=== PATIENT | female | born 1955 | race Hispanic/Latino ===

== ENCOUNTER 2021-08-10 17:05 | Emergency (ER) | payer MEDICARE | END 2021-08-10 18:21 | disposition home or self-care (01) | LOC: CSHERS 17:05 | DX: B02.9 Zoster without complications (principal); B86 Scabies; I48.91 Unspecified atrial fibrillation; E78.5 Hyperlipidemia, unspecified; E78.00 Pure hypercholesterolemia, unspecified; Z79.01 Long term (current) use of anticoagulants; Z79.82 Long term (current) use of aspirin; Z79.84 Long term (current) use of oral hypoglycemic drugs | CPT/HCPCS: 99282 ==

== ENCOUNTER 2021-08-18 16:31 | Observation (INO) | payer MEDICARE ==
[2021-08-18 17:37] LABS: #Basophils 0.1 10x3/uL (0.0-0.2); #Eosinphils 0.1 10x3/uL (0.0-0.5); #Monocytes 0.7 10x3/uL (0.0-1.1); #Neutrophils 5.1 10x3/uL (1.5-8.4); %Basophils 0.6 % (0.0-2.0); %Eosinophils 1.5 % (0.0-6.0); %Lymphocytes 28.9 % (18.0-47.0); %Monocytes 8.5 % (0.0-10.0); %Neutrophils 59.9 % (40.0-75.0); Hemoglobin 13.6 g/dL (12.0-15.5); Mean Corpuscular HGB CONC 33.7 g/dL (32.0-36.0); Mean Corpuscular Hemoglobin 31.1 pg (27.0-33.0); Mean Corpuscular Volume 92.2 fl (81.6-98.3); Mean Platelet Volume 10.5 fl (7.4-10.4); Platelet Count 223 10x3/uL (150-450); RBC Distribution Width 12.9 % (11.5-14.5); Red Blood Cell (RBC) Count 4.37 10x6/uL (3.90-5.03); White Blood Cell (WBC) Count 8.5 10x3/uL (3.5-10.5)
[2021-08-18 17:47] LABS: ALT (SGPT) 53 U/L (8-55); AST (SGOT) 66 U/L (5-34); Albumin 3.8 g/dL (3.4-4.8); Alkaline Phosphatase 55 U/L (40-110); Anion Gap 14 mmol/L (10-20); BUN (Urea Nitrogen) 19 mg/dL (9.8-20.1); Bilirubin, Total 1.1 mg/dL (0.2-1.2); Calc. Creatinine Clearance 0 mL/min (70-130); Calcium 9.9 mg/dL (7.8-10.44); Carbon Dioxide 28 mmol/L (23-31); Chloride 103 mmol/L (98-107); Globulin 2.5 g/dL (2.4-3.5); Glucose 268 mg/dL (80-115); Potassium 4.8 mmol/L (3.5-5.1); Protein, Total 6.3 g/dL (5.8-8.1); Sodium 140 mmol/L (136-145)
[2021-08-18] MEDS ORDERED: Acetaminophen 650 MG Suppository PR PRN (19:00)
[2021-08-18] MEDS ORDERED: Acetaminophen 325 MG TAB PO PRN (19:00)
[2021-08-18] MEDS ORDERED: Dextrose 5% in Water 1,000 ML IV PRN (19:07)
[2021-08-18] MEDS ORDERED: Insulin Regular 300 UNITS/3 ML VIAL SC PRN (19:07)
[2021-08-18] MEDS ORDERED: Dextrose 50% Abboject 50 ML SYRINGE SLOW IVP PRN (19:07)
[2021-08-18 20:14] LABS: HIV (1/2) Antibody/Antigen Non-Reactive (NonReactive); HIV 1/2 INDEX 0.08 S/CO (<1.00); Syphilis Antibody Nonreactive (Nonreactive); Syphilis Antibody Index 0.09 S/CO (<1.00 Non-Reactive)
[2021-08-18] MEDS ORDERED: Dronedarone HCl 400 MG TAB PO SCH (21:00)
[2021-08-18] MEDS ORDERED: Apixaban 5 MG TAB PO SCH ×2 (21:00→22:15)
[2021-08-18] MEDS ORDERED: Permethrin 5% Cream 60 GM TUBE TOP SCH (22:00)
[2021-08-18] MEDS: Atorvastatin Calcium 20 MG TAB PO SCH (22:35)
[2021-08-18] MEDS: Metoprolol Tartrate 50 MG TAB PO SCH (22:35)
[2021-08-18] MEDS: Sodium Chloride 0.9% 1,000 ML IV SCH (22:35)
[2021-08-19 03:26] VITALS: BMI 36.1
[2021-08-19 03:36] LABS: #Basophils 0.1 10x3/uL (0.0-0.2); #Eosinphils 0.2 10x3/uL (0.0-0.5); #Monocytes 0.7 10x3/uL (0.0-1.1); #Neutrophils 5.1 10x3/uL (1.5-8.4); %Basophils 0.6 % (0.0-2.0); %Eosinophils 2.7 % (0.0-6.0); %Lymphocytes 30.2 % (18.0-47.0); %Neutrophils 57.8 % (40.0-75.0); Hemoglobin 13.8 g/dL (12.0-15.5); Mean Corpuscular HGB CONC 33.8 g/dL (32.0-36.0); Mean Corpuscular Hemoglobin 31.1 pg (27.0-33.0); Mean Corpuscular Volume 91.9 fl (81.6-98.3); Mean Platelet Volume 10.4 fl (7.4-10.4); Platelet Count 211 10x3/uL (150-450); RBC Distribution Width 12.9 % (11.5-14.5); Red Blood Cell (RBC) Count 4.44 10x6/uL (3.90-5.03); White Blood Cell (WBC) Count 8.8 10x3/uL (3.5-10.5)
[2021-08-19 03:55] LABS: Anion Gap 13 mmol/L (10-20); BUN (Urea Nitrogen) 19 mg/dL (9.8-20.1); Calc. Creatinine Clearance 104 mL/min (70-130); Calcium 9.4 mg/dL (7.8-10.44); Carbon Dioxide 26 mmol/L (23-31); Chloride 107 mmol/L (98-107); Glucose 179 mg/dL (80-115); Sodium 142 mmol/L (136-145)
[2021-08-19] MEDS: metFORMIN 500 MG TAB PO SCH ×2 (06:33→17:27)
[2021-08-19] MEDS: Empagliflozin 10 MG TAB PO SCH (08:22)
[2021-08-19] MEDS: Aspirin Chewable 81 MG TAB PO SCH (08:22)
[2021-08-19] MEDS: valACYclovir 500 MG TAB PO SCH ×2 (08:23→20:50)
[2021-08-19] MEDS: Metoprolol Tartrate 50 MG TAB PO SCH ×2 (08:23→20:50)
[2021-08-19] MEDS: Apixaban 5 MG TAB PO SCH ×2 (08:23→20:51)
[2021-08-19] MEDS: predniSONE 50 MG TAB PO SCH (08:29)
[2021-08-19] MEDS ORDERED: valACYclovir 500 MG TAB PO SCH (09:00)
[2021-08-19] MEDS ORDERED: Permethrin 5% Cream 60 GM TUBE TOP SCH (11:00)
[2021-08-19] MEDS: Sodium Chloride 0.9% 1,000 ML IV SCH (12:59)
[2021-08-19] MEDS: Insulin Regular 300 UNITS/3 ML VIAL SC PRN (17:27)
[2021-08-19] MEDS: Atorvastatin Calcium 20 MG TAB PO SCH (20:51)
[2021-08-20] MEDS: Sodium Chloride 0.9% 1,000 ML IV SCH ×2 (03:30→17:02)
[2021-08-20 04:12] LABS: #Eosinphils 0.1 10x3/uL (0.0-0.5); #Monocytes 0.8 10x3/uL (0.0-1.1); #Neutrophils 7.6 10x3/uL (1.5-8.4); %Basophils 0.4 % (0.0-2.0); %Eosinophils 0.9 % (0.0-6.0); %Lymphocytes 23.8 % (18.0-47.0); %Monocytes 6.9 % (0.0-10.0); %Neutrophils 67.4 % (40.0-75.0); Hemoglobin 13.7 g/dL (12.0-15.5); Mean Corpuscular HGB CONC 34.4 g/dL (32.0-36.0); Mean Corpuscular Hemoglobin 31.6 pg (27.0-33.0); Mean Corpuscular Volume 91.7 fl (81.6-98.3); Mean Platelet Volume 10.8 fl (7.4-10.4); Platelet Count 218 10x3/uL (150-450); RBC Distribution Width 12.8 % (11.5-14.5); Red Blood Cell (RBC) Count 4.34 10x6/uL (3.90-5.03); White Blood Cell (WBC) Count 11.3 10x3/uL (3.5-10.5)
[2021-08-20 04:29] LABS: Anion Gap 14 mmol/L (10-20); BUN (Urea Nitrogen) 18 mg/dL (9.8-20.1); Calc. Creatinine Clearance 110 mL/min (70-130); Calcium 10.1 mg/dL (7.8-10.44); Carbon Dioxide 26 mmol/L (23-31); Chloride 105 mmol/L (98-107); Glucose 125 mg/dL (80-115); Potassium 3.8 mmol/L (3.5-5.1); Sodium 141 mmol/L (136-145)
[2021-08-20] MEDS: Empagliflozin 10 MG TAB PO SCH (08:58)
[2021-08-20] MEDS: Metoprolol Tartrate 50 MG TAB PO SCH (08:59)
[2021-08-20] MEDS: valACYclovir 500 MG TAB PO SCH (08:59)
[2021-08-20] MEDS: Apixaban 5 MG TAB PO SCH (08:59)
[2021-08-20] MEDS: metFORMIN 500 MG TAB PO SCH ×2 (08:59→17:03)
[2021-08-20] MEDS: Aspirin Chewable 81 MG TAB PO SCH (09:00)
[2021-08-20] MEDS: predniSONE 50 MG TAB PO SCH (09:01)
[2021-08-20] MEDS: Insulin Regular 300 UNITS/3 ML VIAL SC PRN ×2 (12:42→17:11)
[2021-08-20 17:01] VITALS: BP 130/79; TEMP 97.8
[2021-08-22 17:37] LABS: HIV-1 Quantitative, RNA PCR <20 copies/mL (.)
== END 2021-08-20 17:36 | disposition home or self-care (01) ==
LOC: CSHERS 16:31 → CSHTELE 20:06
PROVIDERS: ADMIT Hospitalist; ATTEND Hospitalist
DX: R55 Syncope and collapse (principal); R42 Dizziness and giddiness; G51.0 Bell's palsy; B86 Scabies; I10 Essential (primary) hypertension; E78.5 Hyperlipidemia, unspecified; E11.9 Type 2 diabetes mellitus without complications; I48.91 Unspecified atrial fibrillation; B02.9 Zoster without complications; I34.0 Nonrheumatic mitral (valve) insufficiency; E66.01 Morbid (severe) obesity due to excess calories; Z68.36 Body mass index [BMI] 36.0-36.9, adult; Z79.01 Long term (current) use of anticoagulants; Z79.52 Long term (current) use of systemic steroids; Z79.84 Long term (current) use of oral hypoglycemic drugs; Z79.899 Other long term (current) drug therapy; Z20.822 Contact with and (suspected) exposure to COVID-19
CPT/HCPCS: 71045; 80048 ×2; 80053; 82962 ×3; 84484 ×2; 85025 ×3; 86780; 87389; 87536; 93005; 93306; 93880; 97139 ×3; 99285; U0003; U0005; 36415; 36416; G0378; J1815; J7050; J7512